=== PATIENT | female | born 1965 | race Caucasian/White ===

== ENCOUNTER → 2017-11-06 16:45 | Outpatient (CLI) | payer BC | END | disposition home or self-care (01) | LOC: D.LABREF 16:45 | DX: D17.1 Benign lipomatous neoplasm of skin and subcutaneous tissue of trunk (principal) ==

== ENCOUNTER → 2017-11-26 16:00 | Outpatient (CLI) | payer BC | END | disposition home or self-care (01) | LOC: D.RAD 16:00 | DX: M54.5 Low back pain (principal) ==